=== PATIENT | female | born 1955 | race Caucasian/White ===

== ENCOUNTER 2020-03-05 05:20 | Inpatient (IN) | payer SELFPAY ==
[~2020-03-05] VITALS: Ht 157.5 cm; Wt 61.2 kg
[2020-03-05] MEDS ORDERED: SODIUM CHLORIDE 0.9% 1,000 ML IV ONE (06:30)
[2020-03-05] MEDS ORDERED: MECLIZINE 25MG TABLET PO ONE (06:45)
[2020-03-05 06:51] LABS: BASOPHILS % 0.5 % (0.0-2.0); EOSINOPHILS % 2.1 % (0.0-5.0); HEMATOCRIT. 37.7 % (36.0-48.0); HEMOGLOBIN. 12.7 g/dL (12.0-16.0); LYMPHOCYTES % 35.3 % (20.0-50.0); MEAN CORPUSCULAR HEMOGLOBIN 29.9 pg (28.0-32.0); MEAN CORPUSCULAR VOLUME 88.8 fL (81.0-99.0); MEAN PLATELET VOLUME 8.9 fl (7.4-10.4); MONOCYTES % 6.8 % (2.0-8.0); NEUTROPHILS % 55.3 % (40.0-76.0); PLATELET 245 x1000/uL (130-400); RED BLOOD CELL COUNT 4.25 mill/uL (4.2-5.4); RED CELL DISTRIBUTION WIDTH 12.8 % (11.6-14.6)
[2020-03-05 07:28] LABS: CHLORIDE 106 mEq/L (98-107)
[2020-03-05] MEDS ORDERED: ASPIRIN 81MG TABLET PO ONE (08:00)
[2020-03-05 12:00] VITALS: BP 144/67
[2020-03-05] MEDS ORDERED: ONDANSETRON HCL 4MG/2ML INJ IV PRN (12:00)
[2020-03-05] MEDS ORDERED: DOCUSATE SODIUM 100MG CAPSULE PO PRN (12:00)
[2020-03-05] MEDS ORDERED: CLONIDINE 0.1MG TABLET PO PRN (12:00)
[2020-03-05] MEDS ORDERED: MAGNESIUM/ALUMINUM HYDROXIDE/SIMETHICONE 30ML UDC PO PRN (12:00)
[2020-03-05] MEDS ORDERED: ACETAMINOPHEN 325MG TABLET PO PRN (12:00)
[2020-03-05] MEDS ORDERED: MECLIZINE 25MG TABLET PO PRN (12:00)
[2020-03-05 12:09] VITALS: BP 144/67
[2020-03-05] MEDS ORDERED: ENOXAPARIN 40MG/0.4ML SYR SUBCUT SCH (13:00)
[2020-03-05 16:00] VITALS: BP 135/69
[2020-03-05 17:13] VITALS: BP 135/69
[2020-03-06] MEDS ORDERED: ASPIRIN 81MG EC TABLET PO SCH (09:00)
== END 2020-03-05 18:29 | disposition home or self-care (01) | DRG 111 ==
LOC: ER 05:20 → EDBEDREQ 09:15 → ENRESERV 10:26 → 6WST 11:31
PROVIDERS: ADMIT Hospitalist; ATTEND Hospitalist
DX: R42 Dizziness and giddiness (principal); E78.00 Pure hypercholesterolemia, unspecified; E78.5 Hyperlipidemia, unspecified; I10 Essential (primary) hypertension; Z90.49 Acquired absence of other specified parts of digestive tract; Z82.49 Family history of ischemic heart disease and other diseases of the circulatory system
CPT/HCPCS: 36415; 71045; 80053; 83880; 84484; 85025; 93005; 93970; 99285; J1650; J7030; J8597